=== PATIENT | female | born 1985 ===

== ENCOUNTER → 2019-08-11 | Outpatient (CLI) | payer OTHER ==
[2019-08-14 03:11] LABS: CHLAMYDIA TRACHOMATIS, NAA Negative (Negative); NEISSERIA GONORRHOEAE, NAA Negative (Negative)
== END | disposition home or self-care (01) ==
LOC: LAB 13:56 → LAB SHORT 13:56
PROVIDERS: Advanced Practice Midwife
DX: Z30.09 Encounter for other general counseling and advice on contraception (principal)
CPT/HCPCS: 87491; 87591